=== PATIENT | male | born 1995 | race Caucasian/White ===

== ENCOUNTER 2017-06-16 15:42 | Inpatient (IN) | payer MEDICAID ==
[~2017-06-16] VITALS: Ht 365.8 cm; Wt 76.4 kg
[~2017-06-16 15:42] MED LIST: ALBU18HF2 INH; ALBU8.5H8 IH; ALBU8HFA PO; BECL8.7A7 INH; NORepinephrine 1 mg/ml inj IV ONE; PRED50TA PO; PRED5TAB PO; epiNEPHrine 0.1mg/ml 10ml syringe ONE; etomidate 2mg/ml inj. ONE
[2017-06-16] MEDS ORDERED: methylPREDNISolone sod succ 125mg/2ml vial IV ONE (16:15)
[2017-06-16] MEDS ORDERED: ipratropium/albuterol 3ml nebule NEB ONE (16:15)
[2017-06-16] MEDS ORDERED: normal saline 1000ML IV soln IVB ONE (16:15)
[2017-06-16 16:41] LABS: BASOPHILS % (AUTO) 0.7 % (0-1); EOSINOPHILS # (AUTO) 0.8 X10'3 (0-0.9); EOSINOPHILS % (AUTO) 13.4 % (0-6); HEMATOCRIT 40.3 % (42.0-52.0); HEMOGLOBIN 13.7 g/dl (14.0-17.9); LYMPHOCYTES # (AUTO) 1.9 X10'3 (1.1-4.8); LYMPHOCYTES % (AUTO) 33.2 % (21-51); MEAN CORPUSCULAR HEMOGLOBIN 28.2 PG (27.0-31.0); MEAN PLATELET VOLUME 8.6 FL (7.4-10.4); MONOCYTES # (AUTO) 0.4 X10'3 (0-0.9); MONOCYTES % (AUTO) 7.8 % (2-12); NEUTROPHILS # (AUTO) 2.5 X10'3 (1.8-7.7); NEUTROPHILS % (AUTO) 44.9 % (42-75); PLATELET COUNT 169 X10'3 (140-440); RED BLOOD COUNT 4.86 X10'6 (4.70-6.10); RED CELL DISTRIBUTION WIDTH 14.4 % (11.5-14.5); WHITE BLOOD COUNT 5.7 X10'3 (4.5-11.0)
[2017-06-16 16:54] LABS: ALANINE AMINOTRANSFERASE 54 U/L (12-78); ALBUMIN 3.6 G/DL (3.4-5.0); ALBUMIN/GLOBULIN RATIO 0.9 (1.1-1.5); ALKALINE PHOSPHATASE 65 IU/L (46-116); ANION GAP 5 (8-16); ASPARTATE AMINO TRANSFERASE 26 U/L (10-37); BILIRUBIN,TOTAL 0.5 MG/DL (0.1-1.0); BLOOD UREA NITROGEN 11 MG/DL (7-18); BUN/CREATININE RATIO 10.7 (5.4-32.0); CALCIUM 9.3 MG/DL (8.5-10.1); CHLORIDE 101 MMOL/L (99-107); CREATININE 1.03 MG/DL (0.60-1.10); GLUCOSE 99 MG/DL (70-104); POTASSIUM 4.7 MMOL/L (3.5-5.1); SODIUM 140 MMOL/L (135-145); TOTAL PROTEIN 7.7 G/DL (6.4-8.2); eGFR 90 ML/MIN
[2017-06-16] MEDS ORDERED: diphenhydrAMINE 50 mg/ml inj IV ONE (18:20)
[2017-06-16] MEDS ORDERED: epiNEPHrine 1 mg/ml inj SQ STA (18:21)
[2017-06-16] MEDS ORDERED: albuterol 2.5 MG/3 ML nebule ONE (18:25)
[2017-06-16] MEDS ORDERED: ketamine 50 mg/ml 10ml vial IM ONE (18:35)
[2017-06-16] MEDS ORDERED: propofol 1000mg/100ml bottle 100 ML IV ONE (18:37)
[2017-06-16] MEDS ORDERED: propofol 1000mg/100ml bottle 100 ML IV PRN (18:37)
[2017-06-16] MEDS ORDERED: succinylcholine 20mg/ml inj IV ONE (18:40)
[2017-06-16] MEDS ORDERED: etomidate 2mg/ml inj. IV ONE (18:40)
[2017-06-16] MEDS ORDERED: albuterol 2.5 MG/3 ML nebule NEB STA (18:47)
[2017-06-16] MEDS ORDERED: MIDAZolam 5mg/ml 2ml vial IV ONE ×2 (18:50→19:00)
[2017-06-16] MEDS: midazolam 100mg in NS 100ml 100 ML IV PRN (19:20)
[2017-06-16 19:31] LABS: ABG BASE EXCESS -5.1 mmol/L (-2.0-3.0); ABG HCO3 22.8 mmol/L (22.0-26.0); ABG OXYGEN SATURATION 99.2 % (95-98); ABG PCO2 (T) 56.4 mmHg (35.0-48.0); ABG PH (T) 7.226 (7.350-7.450); ABG PO2 (T) 509.8 mmHg (83-108); ALLEN'S TEST Positive; FMetHb 0.1 % (0.3-1.12); FO2Hb 99.1 % (94-100); MINUTE VOLUME 13 L/min; PATIENT TEMPERATURE 37.5; PEEP 5 cm H2O; RESPIRATORY RATE 12 b/min; RESPIRATORY RATE (OBSERVED) 18 b/min; TIDAL VOLUME 450 mL; TOTAL HEMOGLOBIN 11.9 G/dl (14.0-18.0)
[2017-06-16] MEDS ORDERED: midazolam 100mg in NS 100ml 100 ML IV PRN (19:41)
[2017-06-16] MEDS ORDERED: ondansetron/PF 4mg/2ml inj IV PRN (19:45)
[2017-06-16] MEDS ORDERED: potassium Cl 40MEQ/250ML bag 250 ML IV SCH (19:45)
[2017-06-16] MEDS ORDERED: morphine 4 MG/ML inj SYRINge IV PRN ×2 (19:45)
[2017-06-16] MEDS ORDERED: potassium Cl 40MEQ/250ML bag 250 ML IV PRN (19:45)
[2017-06-16] MEDS ORDERED: acetaminophen 325mg tablet PO PRN ×2 (19:45)
[2017-06-16] MEDS ORDERED: potassium Cl 20 mEq SR tablet PO PRN ×2 (19:45)
[2017-06-16] MEDS ORDERED: CefTRIAXone 2gm/NS 100ml IVPB 100 ML IV ONE (20:15)
[2017-06-16] MEDS: FENTANYL-0.9 % NACL/PF 100 ML IV PRN (20:19)
[2017-06-16] MEDS: normal saline 1000ml 1,000 ML IV SCH (21:08)
[2017-06-16 21:49] LABS: CLARITY,URINE TURBID (Clear); COLOR,URINE YELLOW (Yellow); GLUCOSE, URINE NEGATIVE (Neg); KETONES,URINE NEGATIVE (Neg); LEUKOCYTE ESTERASE ,URINE NEGATIVE (Neg); NITRITES, URINE NEGATIVE (Neg); OCCULT BLOOD,URINE NEGATIVE (Neg); PH,URINE 5.5 (4.8-8.0); PROTEIN,URINE 30 mg/dl (Neg); UROBILINOGEN,URINE 0.2 E.U/dL (0.2-1.0)
[2017-06-16 21:51] LABS: UA COLLECTION TYPE FOLEY CATH
[2017-06-16 21:54] LABS: URINE AMPHETAMINE SCREEN POSITIVE (Neg); URINE BARBITUATE SCREEN NEGATIVE (Neg); URINE BENZODIAZEPINES SCREEN POSITIVE (Neg); URINE CANNABINOID SCREEN POSITIVE (Neg); URINE COCAINE SCREEN POSITIVE (Neg); URINE METHADONE SCREEN NEGATIVE (Neg); URINE OPIATE SCREEN POSITIVE (Neg); URINE PHENCYCLIDINE SCREEN NEGATIVE (Neg)
[2017-06-16 22:00] VITALS: BP 117/79
[2017-06-16 22:03] LABS: RBC,URINE 0-2 /HPF (0-2); WBC,URINE 0-4 /HPF (0-4)
[2017-06-16 22:04] LABS: AMORPHOUS URATES 4+; BACTERIA,URINE NONE SEEN /HPF (Neg); CAL OXALATE CRYSTALS FEW /HPF (NEGATIVE); MUCUS STRANDS FEW /LPF (Neg); SPERM FEW /HPF (NEGATIVE); SQUAMOUS EPITHELIAL CELL,UR FEW /LPF (FEW)
[2017-06-16 22:30] VITALS: BP 114/75
[2017-06-16 23:00] VITALS: BP 102/77
[2017-06-16] MEDS: ipratropium/albuterol 3ml nebule NEB PRN (23:10)
[2017-06-16 23:30] LABS: OXYGEN SATURATION (MIXED VEN) 81.1 % (60-80); PO2 MIXED VENOUS (TEMP COR) 43.5 mmHg (35-46)
[2017-06-17] VITALS (23 sets, daily range): BP systolic 87–119; BP diastolic 44–76
[2017-06-17 00:21] LABS: ABG BASE EXCESS 3.8 mmol/L (-2.0-3.0); ABG OXYGEN SATURATION 95.7 % (95-98); ABG PCO2 (T) 36.4 mmHg (35.0-48.0); ABG PH (T) 7.489 (7.350-7.450); ABG PO2 (T) 70.7 mmHg (83-108); ALLEN'S TEST Positive; FCOHb 0.1 % (0.5-1.5); FMetHb 0.3 % (0.3-1.12); FO2Hb 95.3 % (94-100); MINUTE VOLUME 16 L/min; PATIENT TEMPERATURE 37.1; PEEP 5 cm H2O; RESPIRATORY RATE 20 b/min; RESPIRATORY RATE (OBSERVED) 23 b/min
[2017-06-17] MEDS ORDERED: ziprasidone IM 20mg inj **IM only IM ONE (00:35)
[2017-06-17] MEDS ORDERED: dexmedetomidine 200mcg/2ml inj. IV ONE (00:35)
[2017-06-17] MEDS ORDERED: ziprasidone IM 20mg inj **IM only ONE (00:35)
[2017-06-17] MEDS: midazolam 100mg in NS 100ml 100 ML IV PRN ×5 (00:52→23:24)
[2017-06-17] MEDS: FENTANYL-0.9 % NACL/PF 100 ML IV PRN ×4 (00:53→23:25)
[2017-06-17] MEDS: dexmedetomidin/NS 400mcg/100ml 100 ML IV SCH ×2 (01:17→14:24)
[2017-06-17] MEDS: ipratropium/albuterol 3ml nebule NEB PRN ×4 (03:39→19:18)
[2017-06-17 04:05] LABS: BASOPHILS % (AUTO) 0 % (0-1); EOSINOPHILS # (AUTO) 0.1 X10'3 (0-0.9); EOSINOPHILS % (AUTO) 1.2 % (0-6); HEMATOCRIT 36.1 % (42.0-52.0); HEMOGLOBIN 12.4 g/dl (14.0-17.9); LYMPHOCYTES # (AUTO) 0.7 X10'3 (1.1-4.8); MEAN CORPUSCULAR HGB CONC 34.2 % (33.0-36.5); MEAN PLATELET VOLUME 9.1 FL (7.4-10.4); MONOCYTES # (AUTO) 0.1 X10'3 (0-0.9); NEUTROPHILS # (AUTO) 4.3 X10'3 (1.8-7.7); NEUTROPHILS % (AUTO) 84.8 % (42-75); PLATELET COUNT 144 X10'3 (140-440); RED BLOOD COUNT 4.41 X10'6 (4.70-6.10); RED CELL DISTRIBUTION WIDTH 14.4 % (11.5-14.5); WHITE BLOOD COUNT 5.1 X10'3 (4.5-11.0)
[2017-06-17 04:21] LABS: ALANINE AMINOTRANSFERASE 46 U/L (12-78); ALBUMIN/GLOBULIN RATIO 0.8 (1.1-1.5); ALKALINE PHOSPHATASE 55 IU/L (46-116); ANION GAP 10 (8-16); ASPARTATE AMINO TRANSFERASE 26 U/L (10-37); BILIRUBIN,TOTAL 0.4 MG/DL (0.1-1.0); BLOOD UREA NITROGEN 10 MG/DL (7-18); BUN/CREATININE RATIO 12.5 (5.4-32.0); CALCIUM 8.6 MG/DL (8.5-10.1); CHLORIDE 108 MMOL/L (99-107); GLUCOSE 145 MG/DL (70-104); MAGNESIUM 1.8 MG/DL (1.5-2.4); POTASSIUM 3.8 MMOL/L (3.5-5.1); SODIUM 141 MMOL/L (135-145); TOTAL CARBON DIOXIDE 23.3 MMOL/L (24-32); TOTAL PROTEIN 6.6 G/DL (6.4-8.2); eGFR > 90 ML/MIN
[2017-06-17] MEDS: normal saline 1000ml 1,000 ML IV SCH ×3 (06:35→18:16)
[2017-06-17] MEDS: CefTRIAXone 2gm/NS 100ml IVPB 100 ML IV SCH (07:30)
[2017-06-17] MEDS: clindamycin 600mg/D5W 50ml 50 ML IV SCH ×3 (07:30→21:40)
[2017-06-17] MEDS: pantoprazole 40 MG vial IV SCH (07:30)
[2017-06-17] MEDS: enoxaparin 40mg/0.4ml syringe SUBCUT SCH (07:30)
[2017-06-17] MEDS: K, MAG and/or Phos replacement - Verify level? MC SCH (08:00)
[2017-06-17 10:36] LABS: ABG BASE EXCESS -3.6 mmol/L (-2.0-3.0); ABG HCO3 18.5 mmol/L (22.0-26.0); ABG OXYGEN SATURATION 98.8 % (95-98); ABG PCO2 (T) 25.7 mmHg (35.0-48.0); ABG PH (T) 7.474 (7.350-7.450); ABG PO2 (T) 178.5 mmHg (83-108); ALLEN'S TEST Positive; FCOHb 0.3 % (0.5-1.5); FO2Hb 98.5 % (94-100); MINUTE VOLUME 12 L/min; PEEP 5 cm H2O; RESPIRATORY RATE 16 b/min; RESPIRATORY RATE (OBSERVED) 16 b/min; TIDAL VOLUME 700 mL; TOTAL HEMOGLOBIN 12.8 G/dl (14.0-18.0)
[2017-06-17] MEDS ORDERED: NO HOME MEDS (13:04)
[2017-06-17] MEDS: dexamethasone 4mg/ml inj IV SCH ×2 (13:36→21:43)
[2017-06-17] MEDS: mineral oil/petrolatum ophthal oint EACHEYE SCH (21:41)
[2017-06-17] MEDS: lactobacillus rhamnosus 10,000 MMU CELLS/CAPSULE PO SCH (21:41)
[2017-06-18] VITALS (9 sets, daily range): BP systolic 97–115; BP diastolic 53–70
[2017-06-18] MEDS: ipratropium/albuterol 3ml nebule NEB PRN ×2 (00:05→03:21)
[2017-06-18] MEDS: mineral oil/petrolatum ophthal oint EACHEYE SCH ×2 (02:00→06:33)
[2017-06-18] MEDS: clindamycin 600mg/D5W 50ml 50 ML IV SCH ×2 (02:56→07:15)
[2017-06-18] MEDS: dexamethasone 4mg/ml inj IV SCH ×2 (02:56→07:16)
[2017-06-18 06:05] LABS: BASOPHILS % (AUTO) 0 % (0-1); EOSINOPHILS % (AUTO) 0.7 % (0-6); HEMATOCRIT 34.7 % (42.0-52.0); LYMPHOCYTES # (AUTO) 0.5 X10'3 (1.1-4.8); LYMPHOCYTES % (AUTO) 9.7 % (21-51); MEAN CORPUSCULAR HEMOGLOBIN 28.2 PG (27.0-31.0); MEAN CORPUSCULAR HGB CONC 34.6 % (33.0-36.5); MEAN CORPUSCULAR VOLUME 81.5 FL (78-98); MEAN PLATELET VOLUME 9.2 FL (7.4-10.4); MONOCYTES # (AUTO) 0.1 X10'3 (0-0.9); MONOCYTES % (AUTO) 1.4 % (2-12); NEUTROPHILS # (AUTO) 4.6 X10'3 (1.8-7.7); NEUTROPHILS % (AUTO) 88.2 % (42-75); PLATELET COUNT 152 X10'3 (140-440); RED BLOOD COUNT 4.26 X10'6 (4.70-6.10); RED CELL DISTRIBUTION WIDTH 14.3 % (11.5-14.5); WHITE BLOOD COUNT 5.2 X10'3 (4.5-11.0)
[2017-06-18 06:11] LABS: ALANINE AMINOTRANSFERASE 39 U/L (12-78); ALBUMIN 2.8 G/DL (3.4-5.0); ALBUMIN/GLOBULIN RATIO 0.8 (1.1-1.5); ALKALINE PHOSPHATASE 50 IU/L (46-116); ANION GAP 11 (8-16); ASPARTATE AMINO TRANSFERASE 17 U/L (10-37); BILIRUBIN,TOTAL 0.3 MG/DL (0.1-1.0); BLOOD UREA NITROGEN 13 MG/DL (7-18); BUN/CREATININE RATIO 13.1 (5.4-32.0); CALCIUM 8.2 MG/DL (8.5-10.1); CHLORIDE 107 MMOL/L (99-107); CREATININE 0.99 MG/DL (0.60-1.10); GLUCOSE 261 MG/DL (70-104); MAGNESIUM 1.9 MG/DL (1.5-2.4); PHOSPHORUS 2.7 MG/DL (2.3-4.5); POTASSIUM 3.8 MMOL/L (3.5-5.1); PREALBUMIN 15.2 MG/DL (19-36); SODIUM 141 MMOL/L (135-145); TOTAL CARBON DIOXIDE 23.5 MMOL/L (24-32); TOTAL PROTEIN 6.5 G/DL (6.4-8.2); eGFR > 90 ML/MIN
[2017-06-18] MEDS: dexmedetomidin/NS 400mcg/100ml 100 ML IV SCH (06:42)
[2017-06-18] MEDS: normal saline 1000ml 1,000 ML IV SCH (06:42)
[2017-06-18] MEDS: FENTANYL-0.9 % NACL/PF 100 ML IV PRN ×2 (07:15→08:54)
[2017-06-18] MEDS: pantoprazole 40 MG vial IV SCH (07:16)
[2017-06-18] MEDS: CefTRIAXone 2gm/NS 100ml IVPB 100 ML IV SCH (07:16)
[2017-06-18] MEDS: enoxaparin 40mg/0.4ml syringe SUBCUT SCH (07:16)
[2017-06-18] MEDS: lactobacillus rhamnosus 10,000 MMU CELLS/CAPSULE PO SCH (07:17)
[2017-06-18] MEDS: K, MAG and/or Phos replacement - Verify level? MC SCH (08:00)
== END 2017-06-18 10:00 | disposition home or self-care (01) | DRG 812 ==
LOC: ER 15:42 → ED HOLD 19:41 → CICU 2S 22:00 → CMPBEDREQ 22:20
PROVIDERS: ADMIT Internal Medicine Critical Care Medicine; ATTEND Internal Medicine Critical Care Medicine
PROC: 5A1945Z Respiratory Ventilation, 24-96 Consecutive Hours (ICD-10-PCS; principal; 2017-06-16)
PROC: 0BH17EZ Insertion of Endotracheal Airway into Trachea, Via Natural or Artificial Opening (ICD-10-PCS; 2017-06-16)
PROC: 06HM33Z Insertion of Infusion Device into Right Femoral Vein, Percutaneous Approach (ICD-10-PCS; 2017-06-16)
DX: T38.0X1A Poisoning by glucocorticoids and synthetic analogues, accidental (unintentional), initial encounter (principal); J96.00 Acute respiratory failure, unspecified whether with hypoxia or hypercapnia; J45.901 Unspecified asthma with (acute) exacerbation; L03.211 Cellulitis of face; F15.90 Other stimulant use, unspecified, uncomplicated; F12.90 Cannabis use, unspecified, uncomplicated; Z91.010 Allergy to peanuts; Z88.8 Allergy status to other drugs, medicaments and biological substances; Z91.013 Allergy to seafood; Z79.899 Other long term (current) drug therapy; Y92.89 Other specified places as the place of occurrence of the external cause
CPT/HCPCS: 36415; 36600; 71045; 71046; 80053; 80305; 81001; 82803; 82810; 83735; 84100; 84134; 85018; 85025; 87070; 93005; 94002; 94003; 94640; 94760; A6213; A6449; A7015; C1751; C1758; C9113; J0171; J0330; J0696; J1100; J1200; J1650; J2250; J2704; J2930; J3486; J3490; J7030

== ENCOUNTER 2017-06-28 20:20 | Emergency (ER) | payer MEDICAID ==
[~2017-06-28] VITALS: Ht 185.4 cm; Wt 72.7 kg
[~2017-06-28 20:20] MED LIST changes: -ALBU18HF2 INH; -ALBU8.5H8 IH; -ALBU8HFA PO; -BECL8.7A7 INH; +NO HOME MEDS; -NORepinephrine 1 mg/ml inj IV ONE; -PRED50TA PO; -PRED5TAB PO; -epiNEPHrine 0.1mg/ml 10ml syringe ONE; -etomidate 2mg/ml inj. ONE
[2017-06-28 20:29] VITALS: BP 122/63
[2017-06-29] MEDS ORDERED: ALBU18HF2 INH (23:25)
[2017-06-29] MEDS ORDERED: BECL8.7A7 INH (23:25)
== END 2017-06-28 23:42 | disposition left against medical advice (07) ==
LOC: ER 20:21
DX: R06.02 Shortness of breath (principal); Z53.21 Procedure and treatment not carried out due to patient leaving prior to being seen by health care provider
CPT/HCPCS: 93005; 99281

== ENCOUNTER 2017-08-27 04:10 | Emergency (ER) | payer MEDICAID ==
[~2017-08-27] VITALS: Ht 190.5 cm; Wt 56.0 kg
[~2017-08-27 04:10] MED LIST changes: +ALBU18HF2 INH; +BECL8.7A7 INH
[2017-08-27 04:30] VITALS: BP 111/76
[2017-08-27] MEDS ORDERED: sulfamethoxazole/trimethoprim DS (800/160mg) tablet PO ONE (04:30)
[2017-08-27] MEDS ORDERED: HYDROcodone/acetaminophen 10/325mg tab PO ONE (04:30)
[2017-08-27] MEDS ORDERED: cephalexin 250mg capsule PO ONE (04:30)
[2017-08-27] MEDS ORDERED: SULF1TAB49 PO (04:34)
[2017-08-27] MEDS ORDERED: CEPH500C5 PO (04:34)
[2017-08-27] MEDS ORDERED: HYDR-569 PO (04:34)
== END 2017-08-27 04:44 | disposition home or self-care (01) ==
LOC: ER 04:11
DX: L03.113 Cellulitis of right upper limb (principal); J45.909 Unspecified asthma, uncomplicated; Z98.890 Other specified postprocedural states; F15.10 Other stimulant abuse, uncomplicated; F12.10 Cannabis abuse, uncomplicated; F14.10 Cocaine abuse, uncomplicated; F11.10 Opioid abuse, uncomplicated; Z56.0 Unemployment, unspecified; Z88.8 Allergy status to other drugs, medicaments and biological substances; Z91.010 Allergy to peanuts; Z91.013 Allergy to seafood
CPT/HCPCS: 99284

== ENCOUNTER 2017-11-23 23:38 | Emergency (ER) | payer MEDICAID ==
[~2017-11-23] VITALS: Ht 185.4 cm; Wt 53.2 kg
[~2017-11-23 23:38] MED LIST changes: +CEPH500C5 PO; +HYDR-569 PO
[2017-11-24] VITALS: BP 108/76
[2017-11-24] MEDS ORDERED: albuterol 2.5 MG/3 ML nebule NEB STA (00:13)
[2017-11-24] MEDS ORDERED: ALBU6.7H INH (01:17)
== END 2017-11-24 01:39 | disposition home or self-care (01) ==
LOC: ER 23:38
DX: J45.901 Unspecified asthma with (acute) exacerbation (principal); F17.210 Nicotine dependence, cigarettes, uncomplicated; F12.10 Cannabis abuse, uncomplicated; F15.10 Other stimulant abuse, uncomplicated; F14.10 Cocaine abuse, uncomplicated; F11.10 Opioid abuse, uncomplicated; Z88.6 Allergy status to analgesic agent; Z91.010 Allergy to peanuts; Z91.013 Allergy to seafood
CPT/HCPCS: 94640; 94760; 99283

== ENCOUNTER 2018-01-02 02:37 | Emergency (ER) | payer MEDICAID ==
[~2018-01-02] VITALS: Ht 182.9 cm; Wt 71.2 kg
[~2018-01-02 02:37] MED LIST changes: +ALBU6.7H INH; +ALBU8.5H8 IH; +BECL7.3A INH; +PRED10TA PO; +PRED10TA23 PO
[2018-01-02 02:42] VITALS: BP 118/70
[2018-01-02] MEDS ORDERED: ipratropium/albuterol 3ml nebule NEB ONE (02:45)
[2018-01-02] MEDS ORDERED: albuterol 2.5 MG/3 ML nebule CONTNEB PRN (02:50)
[2018-01-02] MEDS ORDERED: ipratropium 0.5 MG/2.5ML nebule IH ONE (02:50)
[2018-01-02] MEDS ORDERED: dexamethasone sod phosphate 10mg/ml inj IV STA (02:50)
[2018-01-02] MEDS ORDERED: magnesium 1gm/100ml D5W IVPB 100 ML IV SCH (02:55)
[2018-01-02] MEDS ORDERED: predniSONE 20 mg tablet PO ONE (03:05)
== END 2018-01-02 04:06 | disposition left against medical advice (07) ==
LOC: ER 02:38
DX: J45.901 Unspecified asthma with (acute) exacerbation (principal); F12.90 Cannabis use, unspecified, uncomplicated; F15.90 Other stimulant use, unspecified, uncomplicated; F11.90 Opioid use, unspecified, uncomplicated; F14.90 Cocaine use, unspecified, uncomplicated; Z98.890 Other specified postprocedural states; Z56.0 Unemployment, unspecified; Z88.8 Allergy status to other drugs, medicaments and biological substances; Z91.013 Allergy to seafood; Z91.010 Allergy to peanuts; Z79.2 Long term (current) use of antibiotics; Z79.899 Other long term (current) drug therapy
CPT/HCPCS: 71045; 94640; 94644; 94760; 99285; J7512; J1100

== ENCOUNTER 2020-07-18 23:08 | Inpatient (IN) | payer MEDICAID ==
[~2020-07-18] VITALS: Ht 188 cm; Wt 88.6 kg
[~2020-07-18 23:08] MED LIST changes: -ALBU6.7H INH; +ALBU6.7H9 INH; -CEPH500C5 PO; +HYDR-4383 PO; -HYDR-569 PO; -PRED10TA23 PO
[2020-07-18] MEDS ORDERED: predniSONE 20 mg tablet PO ONE (23:35)
[2020-07-18] MEDS ORDERED: ipratropium/albuterol 3ml nebule NEB ONE (23:35)
[2020-07-19 00:06] LABS: ALBUMIN 3.9 G/DL (3.4-5.0); ANION GAP 13 (8-16); BLOOD UREA NITROGEN 13 MG/DL (7-18); BUN/CREATININE RATIO 11.4 (5.4-32.0); CALCIUM 8.9 MG/DL (8.5-10.1); CHLORIDE 104 MMOL/L (99-107); CREATININE 1.14 MG/DL (0.60-1.10); GLUCOSE 106 MG/DL (70-104); POTASSIUM 4.2 MMOL/L (3.5-5.1); SODIUM 141 MMOL/L (135-145); TOTAL CARBON DIOXIDE 24.3 MMOL/L (24-32); eGFR 78 ML/MIN
[2020-07-19] MEDS ORDERED: diphenhydrAMINE 50 mg/ml inj IV ONE (00:40)
[2020-07-19] MEDS ORDERED: iohexol 350MG/ML 100ml bottle IV ONE (00:42)
[2020-07-19] MEDS ORDERED: albuterol 2.5 MG/3 ML nebule NEB ONE (01:00)
--- NOTE | 2020-07-19 01:37 | NUR ---
PT STATES HE IS FEELING BETTER AFTER THE TREATMENT FROM [facility] - - CT IS TAKING PT TO CT - HE WILL BE MEDICATED WITH BENADRYL PRIOR TO CT AND ANOTHER RN WILL ACCOMPANY HIM TO CT.
[2020-07-19] MEDS ORDERED: acetaminophen 325mg tablet PO PRN ×2 (03:20)
[2020-07-19] MEDS ORDERED: potassium Cl 20 mEq SR tablet PO PRN ×2 (03:20)
[2020-07-19] MEDS ORDERED: normal saline 1000ml 1,000 ML IV SCH (03:20)
[2020-07-19] MEDS ORDERED: magnesium 2GM in 50ml NS 50 ML IV PRN (03:20)
[2020-07-19] MEDS ORDERED: ondansetron/PF 4mg/2ml inj IV PRN (03:20)
[2020-07-19] MEDS ORDERED: magnesium Cl slow-release 64mg tablet PO PRN (03:20)
[2020-07-19] MEDS ORDERED: magnesium 4gm in 100ml NS 100 ML IV PRN (03:20)
[2020-07-19] MEDS ORDERED: potassium Cl 40MEQ/1/2NS 520ml 520 ML IV PRN ×2 (03:20)
[2020-07-19 03:38] LABS: D-DIMER < 0.19 MG/L FEU (0-0.50)
[2020-07-19] MEDS ORDERED: LORazepam 2 mg/ml vial IV PRN (03:40)
[2020-07-19] MEDS ORDERED: LORazepam 1 MG tablet PO PRN (03:40)
[2020-07-19] MEDS: albuterol 2.5 MG/3 ML nebule NEB SCH ×3 (04:00→11:44)
[2020-07-19 04:19] LABS: BASOPHILS % (AUTO) 0.4 % (0-1); EOSINOPHILS # (AUTO) 0.4 X10'3 (0-0.9); EOSINOPHILS % (AUTO) 3.9 % (0-6); HEMATOCRIT 49.3 % (42.0-52.0); HEMOGLOBIN 16.3 g/dl (14.0-17.9); LYMPHOCYTES # (AUTO) 2.4 X10'3 (1.1-4.8); MEAN CORPUSCULAR HEMOGLOBIN 29.9 PG (27.0-31.0); MEAN CORPUSCULAR HGB CONC 33.1 g/dL (33.0-36.5); MEAN CORPUSCULAR VOLUME 90.3 FL (78-98); MEAN PLATELET VOLUME 9.5 FL (7.4-10.4); MONOCYTES # (AUTO) 0.6 X10'3 (0-0.9); MONOCYTES % (AUTO) 5.8 % (2-12); NEUTROPHILS # (AUTO) 6.7 X10'3 (1.8-7.7); NEUTROPHILS % (AUTO) 65.9 % (42-75); PLATELET COUNT 192 X10'3 (140-440); RED BLOOD COUNT 5.46 X10'6 (4.70-6.10); RED CELL DISTRIBUTION WIDTH 13.7 % (11.5-14.5); WHITE BLOOD COUNT 10.2 X10'3 (4.5-11.0)
[2020-07-19] MEDS ORDERED: predniSONE 20 mg tablet PO SCH (08:00)
[2020-07-19] MEDS ORDERED: docusate sod 100mg capsule PO SCH (08:00)
[2020-07-19] MEDS ORDERED: CefTRIAXone 2gm/D5W 50ml BAG 50 ML IV SCH (08:00)
[2020-07-19] MEDS ORDERED: methylPREDNISolone sod succ 125mg/2ml vial IV SCH (08:00)
[2020-07-19] MEDS ORDERED: heparin, porcine 5000 units/ml vial SQ SCH (08:00)
[2020-07-19] MEDS ORDERED: K and/or MAG REPLACEMENT MC SCH (08:00)
--- NOTE | 2020-07-19 10:54 | NUR ---
Pt requested to speak with me. Went to pt's bedside, and he asked for an update. Pt concerned that he will miss work if he stays in the hospital and at this time is feeling more comfortable and feels he could be able to go home.
[2020-07-19 12:20] VITALS: BP 129/72
--- NOTE | 2020-07-19 12:35 | NUR ---
received from ER by wheelchair. patient AAOx3 appears in no acute distress, saturating 92% on room air. Patient requesting to talk to his doctor , Dr Oliveros notified.
[2020-07-19] MEDS ORDERED: AZIT-63 PO (14:02)
[2020-07-19] MEDS ORDERED: ALBU8HFA PO (14:02)
[2020-07-19] MEDS ORDERED: PRED10TA23 PO (14:02)
--- NOTE | 2020-07-19 14:40 | NUR ---
discharge instructions given to patient and mother , bnoth verbalized understanding. Discharged home with mother, condition stable
[2020-07-19] MEDS ORDERED: lactobacillus rhamnosus 10,000 MMU CELLS/CAPSULE PO SCH (20:00)
== END 2020-07-19 14:46 | disposition home or self-care (01) | DRG 140 ==
LOC: ER 23:09 → ED HOLD 07-19 03:18 → MED 3N 07-19 12:38
PROVIDERS: ADMIT Internal Medicine; ATTEND Family Medicine
PROC: B32T1ZZ Computerized Tomography (CT Scan) of Left Pulmonary Artery using Low Osmolar Contrast (ICD-10-PCS; principal; 2020-07-19)
PROC: B3201ZZ Computerized Tomography (CT Scan) of Thoracic Aorta using Low Osmolar Contrast (ICD-10-PCS; 2020-07-19)
PROC: B32S1ZZ Computerized Tomography (CT Scan) of Right Pulmonary Artery using Low Osmolar Contrast (ICD-10-PCS; 2020-07-19)
DX: J44.1 Chronic obstructive pulmonary disease with (acute) exacerbation (principal); J45.901 Unspecified asthma with (acute) exacerbation; F12.90 Cannabis use, unspecified, uncomplicated; F14.90 Cocaine use, unspecified, uncomplicated; F15.10 Other stimulant abuse, uncomplicated; F17.210 Nicotine dependence, cigarettes, uncomplicated; R09.02 Hypoxemia; Z88.8 Allergy status to other drugs, medicaments and biological substances; Z91.010 Allergy to peanuts; Z91.013 Allergy to seafood; Z71.51 Drug abuse counseling and surveillance of drug abuser; Z71.6 Tobacco abuse counseling
CPT/HCPCS: 36415; 71045; 71275; 80048; 83605; 85025; 85379; 87040; 93005; 93306; 93308; 94640; 94760; 99285; G0378; J0696; J1200; J1644; J7030; J7512; Q9967

== ENCOUNTER 2020-07-28 06:15 | Emergency (ER) | payer MEDICAID ==
[~2020-07-28] VITALS: Ht 185.4 cm; Wt 84.1 kg
[~2020-07-28 06:15] MED LIST changes: -ALBU18HF2 INH; -ALBU6.7H9 INH; -ALBU8.5H8 IH; +ALBU8HFA PO; +AZIT-63 PO; -BECL7.3A INH; -HYDR-4383 PO; -NO HOME MEDS; -PRED10TA PO; +PRED10TA23 PO
[2020-07-28 06:44] VITALS: BP 124/70
[2020-07-28] MEDS ORDERED: BENZ-16 PO (07:34)
[2020-07-28] MEDS ORDERED: INHA1INH2 INH (07:34)
[2020-07-28] MEDS ORDERED: PRED10TA PO (07:34)
[2020-07-28] MEDS ORDERED: ipratropium/albuterol 3ml nebule NEB ONE (07:50)
== END 2020-07-28 08:14 | disposition home or self-care (01) ==
LOC: ER 06:15
DX: J45.909 Unspecified asthma, uncomplicated (principal); F12.90 Cannabis use, unspecified, uncomplicated; F15.90 Other stimulant use, unspecified, uncomplicated; F14.90 Cocaine use, unspecified, uncomplicated; F11.90 Opioid use, unspecified, uncomplicated; F17.210 Nicotine dependence, cigarettes, uncomplicated; Z56.0 Unemployment, unspecified; Z98.890 Other specified postprocedural states; Z88.8 Allergy status to other drugs, medicaments and biological substances; Z91.010 Allergy to peanuts; Z91.013 Allergy to seafood; Z79.899 Other long term (current) drug therapy
CPT/HCPCS: 94640; 94760; 99283; 99406

== ENCOUNTER 2020-08-21 06:07 | Emergency (ER) | payer MEDICAID ==
[~2020-08-21] VITALS: Ht 185.4 cm; Wt 79.5 kg
[~2020-08-21 06:07] MED LIST changes: -ALBU8HFA PO; -AZIT-63 PO; +BENZ-16 PO; +INHA1INH2 INH; +PRED10TA PO; -PRED10TA23 PO
[2020-08-21 06:19] VITALS: BP 102/64
== END 2020-08-21 06:57 | disposition home or self-care (01) ==
LOC: ER 06:07
DX: Z02.89 Encounter for other administrative examinations (principal); J45.909 Unspecified asthma, uncomplicated; F12.90 Cannabis use, unspecified, uncomplicated; F15.90 Other stimulant use, unspecified, uncomplicated; F14.90 Cocaine use, unspecified, uncomplicated; F11.90 Opioid use, unspecified, uncomplicated; Z87.01 Personal history of pneumonia (recurrent); Z98.890 Other specified postprocedural states; Z56.0 Unemployment, unspecified; Z88.8 Allergy status to other drugs, medicaments and biological substances; Z91.010 Allergy to peanuts; Z91.013 Allergy to seafood; Z79.899 Other long term (current) drug therapy
CPT/HCPCS: 99283

== ENCOUNTER 2020-09-20 13:44 | Emergency (ER) | payer MEDICAID ==
[~2020-09-20] VITALS: Ht 185.4 cm; Wt 77.3 kg
[~2020-09-20 13:44] MED LIST changes: -BENZ-16 PO
[2020-09-20 14:38] LABS: BASOPHILS % (AUTO) 0.5 % (0-1); EOSINOPHILS # (AUTO) 0.5 X10'3 (0-0.9); HEMATOCRIT 40.6 % (42.0-52.0); HEMOGLOBIN 13.7 g/dl (14.0-17.9); LYMPHOCYTES # (AUTO) 2.2 X10'3 (1.1-4.8); MEAN CORPUSCULAR HEMOGLOBIN 28.8 PG (27.0-31.0); MEAN CORPUSCULAR HGB CONC 33.6 g/dL (33.0-36.5); MEAN CORPUSCULAR VOLUME 85.7 FL (78-98); MEAN PLATELET VOLUME 8.3 FL (7.4-10.4); MONOCYTES # (AUTO) 0.7 X10'3 (0-0.9); MONOCYTES % (AUTO) 6.9 % (2-12); NEUTROPHILS # (AUTO) 6.3 X10'3 (1.8-7.7); NEUTROPHILS % (AUTO) 64.6 % (42-75); PLATELET COUNT 224 X10'3 (140-440); RED BLOOD COUNT 4.74 X10'6 (4.70-6.10); RED CELL DISTRIBUTION WIDTH 13.1 % (11.5-14.5); WHITE BLOOD COUNT 9.7 X10'3 (4.5-11.0)
[2020-09-20 14:55] LABS: ALANINE AMINOTRANSFERASE 56 U/L (12-78); ALBUMIN/GLOBULIN RATIO 0.7 (1.1-1.5); ALKALINE PHOSPHATASE 53 IU/L (46-116); ANION GAP 6 (8-16); ASPARTATE AMINO TRANSFERASE 76 U/L (10-37); BILIRUBIN,TOTAL 0.8 MG/DL (0.1-1.0); BLOOD UREA NITROGEN 11 MG/DL (7-18); CHLORIDE 98 MMOL/L (99-107); CREATININE 0.92 MG/DL (0.60-1.10); GLUCOSE 80 MG/DL (70-104); POTASSIUM 3.3 MMOL/L (3.5-5.1); SODIUM 137 MMOL/L (135-145); TOTAL PROTEIN 7.5 G/DL (6.4-8.2); eGFR > 90 ML/MIN
[2020-09-20] MEDS ORDERED: AZIT500T9 PO (16:39)
[2020-09-20] MEDS ORDERED: AMOX-14 PO (16:39)
[2020-09-20] MEDS ORDERED: albuterol 2.5 MG/3 ML nebule NEB ONE ×2 (18:25→19:05)
[2020-09-20 19:32] VITALS: BP 117/76
== END 2020-09-20 19:34 | disposition home or self-care (01) ==
LOC: ER 13:45
DX: J18.9 Pneumonia, unspecified organism (principal); J45.909 Unspecified asthma, uncomplicated; F12.90 Cannabis use, unspecified, uncomplicated; F15.90 Other stimulant use, unspecified, uncomplicated; F14.90 Cocaine use, unspecified, uncomplicated; F11.90 Opioid use, unspecified, uncomplicated; Z59.0 Homelessness; Z56.0 Unemployment, unspecified; Z98.890 Other specified postprocedural states; Z88.8 Allergy status to other drugs, medicaments and biological substances; Z91.010 Allergy to peanuts; Z91.013 Allergy to seafood; Z79.899 Other long term (current) drug therapy
CPT/HCPCS: 36415; 71046; 80053; 83605; 83880; 84145; 85025; 87040; 93005; 94640; 94760; 99285

== ENCOUNTER 2020-09-29 01:44 | Emergency (ER) | payer MEDICAID ==
[~2020-09-29] VITALS: Ht 185.4 cm; Wt 75.0 kg
[~2020-09-29 01:44] MED LIST changes: +AZIT500T9 PO
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
[2020-09-29] MEDS ORDERED: ipratropium/albuterol 3ml nebule NEB ONE (02:40)
--- NOTE | 2020-09-29 02:43 | NUR ---
Patient complains of need for a breathing treatment, eg: recent pneuonia. Good tidal volume with slight inspiratory and expiratory wheezing. RT called to ED, HHN neb given.
--- NOTE | 2020-09-29 03:03 | NUR ---
SaO2 is 94 percent room air post neb. Patient discharged to custody of [facility] Officer. Patient to [facility].
[2020-09-29 03:06] VITALS: BP 108/68
== END 2020-09-29 03:10 ==
LOC: ER 01:44
DX: Z04.1 Encounter for examination and observation following transport accident (principal); S00.211A Abrasion of right eyelid and periocular area, initial encounter; J45.909 Unspecified asthma, uncomplicated; F12.90 Cannabis use, unspecified, uncomplicated; F15.90 Other stimulant use, unspecified, uncomplicated; F14.90 Cocaine use, unspecified, uncomplicated; F11.90 Opioid use, unspecified, uncomplicated; Z87.01 Personal history of pneumonia (recurrent); Z98.890 Other specified postprocedural states; Z56.0 Unemployment, unspecified; Z59.0 Homelessness; Z88.8 Allergy status to other drugs, medicaments and biological substances; Z91.010 Allergy to peanuts; Z91.013 Allergy to seafood; Z79.2 Long term (current) use of antibiotics; Z79.899 Other long term (current) drug therapy; V87.7XXA Person injured in collision between other specified motor vehicles (traffic), initial encounter; Y93.89 Activity, other specified; Y92.89 Other specified places as the place of occurrence of the external cause; Y99.8 Other external cause status
CPT/HCPCS: 94640; 94760; 99283

== ENCOUNTER 2020-11-18 02:59 | Emergency (ER) | payer MEDICAID ==
[~2020-11-18] VITALS: Ht 185.4 cm; Wt 85.0 kg
[2020-11-18 03:08] VITALS: BP 119/68
[2020-11-18] MEDS ORDERED: dexamethasone sod phosphate 10mg/ml inj PO STA (04:08)
[2020-11-18] MEDS ORDERED: ipratropium/albuterol 3ml nebule NEB ONE (04:15)
[2020-11-18] MEDS ORDERED: DOXY100C43 PO (04:41)
[2020-11-18] MEDS ORDERED: PRED20TA PO (04:41)
[2020-11-18] MEDS ORDERED: DOXYCYCLINE 100MG CAPSULE PO STA (04:42)
[2020-11-18] MEDS ORDERED: BUDE10.2 INH (04:49)
== END 2020-11-18 04:57 | disposition home or self-care (01) ==
LOC: ER 02:59
DX: J18.9 Pneumonia, unspecified organism (principal); Z56.0 Unemployment, unspecified; J45.909 Unspecified asthma, uncomplicated; Z20.822 Contact with and (suspected) exposure to COVID-19; F12.10 Cannabis abuse, uncomplicated; F15.10 Other stimulant abuse, uncomplicated; F11.10 Opioid abuse, uncomplicated
CPT/HCPCS: 71045; 87635; 93005; 94640; 99285; C9803; J1100; 94760

== ENCOUNTER 2020-12-08 01:24 | Emergency (ER) | payer MEDICAID ==
[~2020-12-08] VITALS: Ht 185.4 cm; Wt 77.3 kg
[~2020-12-08 01:24] MED LIST changes: +BUDE10.2 INH; +DOXY100C43 PO; +PRED20TA PO
[2020-12-08] MEDS ORDERED: CEPH250T PO (05:33)
[2020-12-08] MEDS ORDERED: SULF1TAB49 PO (05:33)
[2020-12-08] MEDS ORDERED: sulfamethoxazole/trimethoprim DS (800/160mg) tablet PO ONE (05:35)
[2020-12-08] MEDS ORDERED: cephalexin 500mg capsule PO ONE (05:35)
[2020-12-08 05:59] VITALS: BP 120/84
== END 2020-12-08 06:04 | disposition home or self-care (01) ==
LOC: ER 01:25
DX: L03.114 Cellulitis of left upper limb (principal); F11.10 Opioid abuse, uncomplicated; F15.10 Other stimulant abuse, uncomplicated; J45.909 Unspecified asthma, uncomplicated; F12.90 Cannabis use, unspecified, uncomplicated; F17.200 Nicotine dependence, unspecified, uncomplicated; Z87.01 Personal history of pneumonia (recurrent); Z98.890 Other specified postprocedural states; Z56.0 Unemployment, unspecified; Z59.0 Homelessness; Z88.8 Allergy status to other drugs, medicaments and biological substances; Z91.010 Allergy to peanuts; Z91.013 Allergy to seafood; Z79.2 Long term (current) use of antibiotics; Z79.899 Other long term (current) drug therapy
CPT/HCPCS: 99283

== ENCOUNTER 2021-01-28 12:33 | Emergency (ER) | payer MEDICAID ==
[~2021-01-28] VITALS: Ht 185.4 cm; Wt 79.5 kg
[~2021-01-28 12:33] MED LIST changes: +CEPH250T PO; -DOXY100C43 PO; -PRED20TA PO
[2021-01-28] MEDS ORDERED: ipratropium/albuterol 3ml nebule NEB ONE (12:40)
[2021-01-28] MEDS ORDERED: diphenhydrAMINE 50 mg/ml inj IV ONE (12:40)
[2021-01-28] MEDS ORDERED: dexamethasone sod phosphate 10mg/ml inj IV STA (12:43)
[2021-01-28] MEDS ORDERED: albuterol 2.5 MG/3 ML nebule CONTNEB PRN (12:45)
[2021-01-28] MEDS ORDERED: famotidine/PF 10 mg/ml inj IV ONE (12:45)
[2021-01-28] MEDS ORDERED: epiNEPHrine 1 mg/ml inj SQ STA (12:48)
[2021-01-28] MEDS ORDERED: magnesium 2GM in 50ml NS 50 ML IV ONE (12:50)
[2021-01-28] MEDS ORDERED: albuterol 2.5 MG/3 ML nebule ONE (12:53)
[2021-01-28] MEDS ORDERED: dexamethasone sod phosphate 10mg/ml inj ONE (12:56)
[2021-01-28 13:10] LABS: BASOPHILS % (AUTO) 0.3 % (0-1); EOSINOPHILS # (AUTO) 0.1 X10'3 (0-0.9); EOSINOPHILS % (AUTO) 1.4 % (0-6); HEMATOCRIT 42.9 % (42.0-52.0); HEMOGLOBIN 14.4 g/dl (14.0-17.9); LYMPHOCYTES # (AUTO) 2.7 X10'3 (1.1-4.8); LYMPHOCYTES % (AUTO) 41.9 % (21-51); MEAN CORPUSCULAR HEMOGLOBIN 28.2 PG (27.0-31.0); MEAN CORPUSCULAR HGB CONC 33.6 g/dL (33.0-36.5); MEAN PLATELET VOLUME 7.4 FL (7.4-10.4); MONOCYTES # (AUTO) 0.4 X10'3 (0-0.9); MONOCYTES % (AUTO) 6.7 % (2-12); NEUTROPHILS # (AUTO) 3.3 X10'3 (1.8-7.7); NEUTROPHILS % (AUTO) 49.7 % (42-75); PLATELET COUNT 242 X10'3 (140-440); RED BLOOD COUNT 5.11 X10'6 (4.70-6.10); WHITE BLOOD COUNT 6.5 X10'3 (4.5-11.0)
[2021-01-28 13:15] VITALS: BP 118/79
--- NOTE | 2021-01-28 13:20 | NUR ---
PATIENT MOVED TO ER ROOM #1 AND REPORT TO LUIS ARMANDO MERCHANT. PATIENT IS STATING THAT HE WANTS TO LEAVE BECAUSE HIS RIDE MIGHT NOT WAIT FOR HIM.
[2021-01-28 13:24] LABS: ALANINE AMINOTRANSFERASE 192 U/L (12-78); ALBUMIN 3.4 G/DL (3.4-5.0); ALBUMIN/GLOBULIN RATIO 0.9 (1.1-1.5); ALKALINE PHOSPHATASE 53 IU/L (46-116); ANION GAP 3 (8-16); ASPARTATE AMINO TRANSFERASE 83 U/L (10-37); BILIRUBIN,TOTAL 0.3 MG/DL (0.1-1.0); BLOOD UREA NITROGEN 13 MG/DL (7-18); CALCIUM 8.5 MG/DL (8.5-10.1); CHLORIDE 102 MMOL/L (99-107); CREATININE 0.81 MG/DL (0.60-1.10); GLUCOSE 101 MG/DL (70-104); POTASSIUM 3.8 MMOL/L (3.5-5.1); SODIUM 137 MMOL/L (135-145); TOTAL CARBON DIOXIDE 31.8 MMOL/L (24-32); TOTAL PROTEIN 7.4 G/DL (6.4-8.2); eGFR > 90 ML/MIN
== END 2021-01-28 13:50 | disposition left against medical advice (07) ==
LOC: ER 12:34
DX: J45.901 Unspecified asthma with (acute) exacerbation (principal); R06.02 Shortness of breath; R06.03 Acute respiratory distress; F12.90 Cannabis use, unspecified, uncomplicated; F15.90 Other stimulant use, unspecified, uncomplicated; F14.90 Cocaine use, unspecified, uncomplicated; F11.90 Opioid use, unspecified, uncomplicated; Z87.01 Personal history of pneumonia (recurrent); Z98.890 Other specified postprocedural states; Z56.0 Unemployment, unspecified; Z59.00 Homelessness unspecified; Z88.8 Allergy status to other drugs, medicaments and biological substances; Z91.010 Allergy to peanuts; Z91.013 Allergy to seafood; Z79.2 Long term (current) use of antibiotics; Z79.899 Other long term (current) drug therapy
CPT/HCPCS: 36415; 71045; 80053; 85025; 93005; 94640; 94644; 96365; 96372; 96375; 99291; J0171; J1100; J1200; J3475; J3490; 94760; A7015

== ENCOUNTER 2023-08-24 05:43 | Emergency (ER) | payer MEDICAID ==
[~2023-08-24] VITALS: Ht 182.9 cm; Wt 84.1 kg
[~2023-08-24 05:43] MED LIST changes: -CEPH250T PO
[2023-08-24 05:57] VITALS: BP 110/66; PULSE 98; RESP 18; TEMP 98; O2SAT 99
== END 2023-08-24 10:59 | disposition left against medical advice (07) ==
LOC: ER 05:43
DX: R07.9 Chest pain, unspecified (principal); Z53.21 Procedure and treatment not carried out due to patient leaving prior to being seen by health care provider
CPT/HCPCS: 93005

== ENCOUNTER 2023-09-25 13:06 | Emergency (ER) | payer MEDICAID ==
[~2023-09-25] VITALS: Ht 185.4 cm; Wt 80.6 kg
[2023-09-25 13:31] VITALS: BP 102/61; PULSE 105; RESP 16; TEMP 98.5; O2SAT 96
[2023-09-25] MEDS ORDERED: DOXY150T3 PO (14:10)
== END 2023-09-25 15:33 | disposition home or self-care (01) ==
LOC: ER 13:07
DX: L03.113 Cellulitis of right upper limb (principal); L03.114 Cellulitis of left upper limb; J45.909 Unspecified asthma, uncomplicated; F12.90 Cannabis use, unspecified, uncomplicated; F15.90 Other stimulant use, unspecified, uncomplicated; Z88.8 Allergy status to other drugs, medicaments and biological substances; Z91.010 Allergy to peanuts; Z91.013 Allergy to seafood; Z79.2 Long term (current) use of antibiotics; Z79.899 Other long term (current) drug therapy
CPT/HCPCS: 99283

== ENCOUNTER 2024-04-19 15:27 | Emergency (ER) | payer MEDICAID ==
[~2024-04-19] VITALS: Ht 185.4 cm; Wt 81.8 kg
[2024-04-19 15:43] VITALS: BP 138/76; PULSE 95; RESP 18; TEMP 98.5; O2SAT 97
== END 2024-04-19 15:48 | disposition home or self-care (01) ==
LOC: ER 15:28
DX: F19.10 Other psychoactive substance abuse, uncomplicated (principal); J45.909 Unspecified asthma, uncomplicated; F12.90 Cannabis use, unspecified, uncomplicated; F14.90 Cocaine use, unspecified, uncomplicated; Z88.8 Allergy status to other drugs, medicaments and biological substances; Z91.013 Allergy to seafood; Z79.1 Long term (current) use of non-steroidal anti-inflammatories (NSAID); Z79.899 Other long term (current) drug therapy; Z59.00 Homelessness unspecified
CPT/HCPCS: 99281

== ENCOUNTER 2024-06-01 22:42 | Emergency (ER) | payer MEDICAID, OTHER ==
[~2024-06-01] VITALS: Ht 185.4 cm; Wt 75.0 kg
[2024-06-01 22:48] VITALS: BP 111/69; PULSE 100; RESP 15; O2SAT 95
[2024-06-02] MEDS ORDERED: IBUP-1984 PO (00:46)
[2024-06-02] MEDS ORDERED: ACET-2615 PO (00:46)
[2024-06-02] MEDS ORDERED: AZIT-164 PO (00:46)
[2024-06-02] MEDS: ibuprofen tablet 400 MG TABLET PO ONE (00:47)
[2024-06-02] MEDS: ondansetron 4mg rapidly disintigrating tab PO ONE (00:48)
[2024-06-02] MEDS: azithromycin 250mg tablet PO ONE (00:48)
[2024-06-02] MEDS: acetaminophen 325mg tablet PO ONE (00:48)
[2024-06-02 00:51] VITALS: TEMP 95.6
== END 2024-06-02 00:53 | disposition home or self-care (01) ==
LOC: ER 22:42
DX: J22 Unspecified acute lower respiratory infection (principal); J45.909 Unspecified asthma, uncomplicated; F12.90 Cannabis use, unspecified, uncomplicated; F15.90 Other stimulant use, unspecified, uncomplicated; F14.90 Cocaine use, unspecified, uncomplicated; Z59.00 Homelessness unspecified; Z56.0 Unemployment, unspecified; Z88.8 Allergy status to other drugs, medicaments and biological substances; Z91.010 Allergy to peanuts; Z91.013 Allergy to seafood; Z79.52 Long term (current) use of systemic steroids; Z98.890 Other specified postprocedural states
CPT/HCPCS: 71045; 99284